=== PATIENT | male | born 1950 | race African-American/Black ===

== ENCOUNTER → 2019-03-09 | Outpatient (CLI) | payer MEDICARE ==
--- NOTE | 2019-03-09 13:25 | RADIOLOGY REPORT (SQ) ---
EXAM DESCRIPTION: LUMBAR SPINE COMPLETE COMPLETED DATE/TIME: 03/09/2019 12:00 pm REASON FOR STUDY: ACUTE MIDLINE LOW BACK PAIN WITHOUT SCIATICA M54.5 LOW BACK PAIN COMPARISON: None. NUMBER OF VIEWS: Five views including obliques. TECHNIQUE: AP, lateral, oblique, and sacral radiographic images acquired of the lumbar spine. LIMITATIONS: None. FINDINGS: MINERALIZATION: Normal. SEGMENTATION: Normal. No transitional anatomy. ALIGNMENT: Normal. VERTEBRAE: Maintained height. No fracture or worrisome bone lesion. DISCS: There is narrowing of the L4-5 disc space. POSTERIOR ELEMENTS: Hypertrophic facet changes are present from L4-S1. HARDWARE: None in the spine. PARASPINAL SOFT TISSUES: Normal. PELVIS: Intact as visualized. No fractures or worrisome bone lesions. SI joints intact. OTHER: No other significant finding. IMPRESSION: Degenerative disc disease, spondylosis, and facet arthropathy. TECHNICAL DOCUMENTATION: JOB ID: [id number] [employer]- All Rights Reserved Reading location - IP/workstation name: [email or web address]
== END ==
LOC: OD 11:38
PROVIDERS: ATTEND Physician Assistant
DX: M51.36 Other intervertebral disc degeneration, lumbar region (principal); M54.5 Low back pain
CPT/HCPCS: 72110

== ENCOUNTER → 2019-03-19 | Outpatient (CLI) | payer MEDICARE ==
--- NOTE | 2019-03-19 11:56 | RADIOLOGY REPORT (SQ) ---
EXAM DESCRIPTION: MRI LUMBAR SPINE WITHOUT COMPLETED DATE/TIME: 03/19/2019 10:07 am REASON FOR STUDY: M54.10 RADICULOPATHY, SITE UNSPECIFIED M54.10 RADICULOPATHY, SITE UNSPECIFIED COMPARISON: Lumbar spine five views 03/09/2019 TECHNIQUE: Sagittal and Axial imaging includes T1, T2, STIR and gradient echo sequences. Coronal T2/ HASTE imaging. LIMITATIONS: None. FINDINGS: VISUALIZED UPPER ABDOMEN: Limited evaluation. No acute or suspicious findings suggested. SEGMENTATION: No transitional anatomy. The lowest well-developed disc space is labeled L5-S1. ALIGNMENT: Grade 1 anterolisthesis of L4 over L5 related to advanced bilateral L4-5 facet arthropathy VERTEBRAE: Intact. BONE MARROW: Normal. No marrow replacement or reactive changes. DISC SIGNAL: Decreased T2 weighted intervertebral disc signal with decreased disc space height at L4- 5 POSTERIOR ELEMENTS: Generally intact. No pars defect evident. HARDWARE: None in the spine. CORD AND CONUS: Normal in size and signal intensity. Conus at the L1-2 level. SOFT TISSUES: No aortic aneurysm seen. No bulky retroperitoneal adenopathy or mass. No paraspinal mas s or fluid. T11-12: At the upper edge of the field of view. Borderline central canal narrowing results from bul ky bilateral facet hypertrophy and prominent epidural fat. No foraminal narrowing. T12-L1: No central or foraminal stenosis. Mild bilateral facet hypertrophy L1-L2: No central or foraminal stenosis. Mild bilateral facet and ligament hypertrophy L2-L3: No central or foraminal stenosis. Moderate bilateral facet hypertrophy. L3-L4: Broad diffuse posterior disc bulging and moderate bilateral facet and ligament hypertrophy is present. No significant central or foraminal stenosis. L4-L5: Grade 1 anterolisthesis of L4 over L5, broad diffuse posterior disc bulge and bony spurring, b ulky bilateral facet and ligament hypertrophy cause moderate central canal narrowing. There is effac ement of the CSF around the lumbar nerve roots best shown on axial image 25. High-grade right forami nal narrowing is present with effacement of fat around the exiting right L4 nerve root. Moderate lef t L4-5 foraminal narrowing. L5-S1: Moderate bilateral facet hypertrophy. No central stenosis. Mild bilateral foraminal narrowin g without exiting L5 nerve root impingement SACRUM: Visualized upper sacrum intact. OTHER: No other significant findings. IMPRESSION: Degenerative changes most pronounced at L4-5 TECHNICAL DOCUMENTATION: JOB ID: [id number] [employer]- All Rights Reserved Reading location - IP/workstation name: [email or web address]
== END ==
LOC: RAD 09:13
PROVIDERS: ATTEND Family Medicine
DX: M54.10 Radiculopathy, site unspecified (principal); M48.061 Spinal stenosis, lumbar region without neurogenic claudication
CPT/HCPCS: 72148

== ENCOUNTER → 2019-12-25 | Outpatient (CLI) | payer MEDICARE ==
--- NOTE | 2019-12-25 12:24 | RADIOLOGY REPORT (SQ) ---
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 TECHNIQUE: Multiplanar imaging includes non-contrasted T1, T2, FLAIR, and diffusion with ADC map seq uences. Images stored on PACS. LIMITATIONS: None. FINDINGS: ANATOMY: No anomalies. Normal vascular flow voids. Pituitary fossa normal. CSF SPACES: Prominent lateral ventricles suggesting some degree of atrophy. CEREBRUM: Sulci and gyri normal in size and contour. Small scattered areas of increased white matter signal on FLAIR imaging. No evidence of hemorrhage, mass, or extraaxial fluid collection. POSTERIOR FOSSA: No signal alteration. No hemorrhage. No edema, masses or mass effect. Internal bonita tory canals, cerebello-pontine angles, mastoids normal. DIFFUSION IMAGING: Negative for acute or sub-acute infarction. ORBITS: No masses. Globes normal. PARANASAL SINUSES: No fluid levels. Mucosa normal. OTHER: No other significant finding. IMPRESSION: Mild involutional changes with mild chronic microvascular ischemia. No acute intracrani al imaging findings. EVIDENCE OF ACUTE STROKE: NO. TECHNICAL DOCUMENTATION: JOB ID: [id number] [employer]- All Rights Reserved Reading location - IP/workstation name: [email or web address]
--- NOTE | 2019-12-25 12:35 | RADIOLOGY REPORT (SQ) ---
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 TECHNIQUE: Sagittal and Axial imaging includes T1, T2, STIR and gradient echo sequences. LIMITATIONS: Slight motion artifact. FINDINGS: ALIGNMENT: Mild anterolisthesis of C7 on T1. VERTEBRAE: Intact. BONE MARROW: Normal. No marrow replacement or reactive changes. DISCS: There is decreased T2 signal in the cervical discs. Disc spaces are narrowed at C3-4 and from C5 to T1. HARDWARE: None in the spine. CORD AND BASE OF BRAIN: Normal in size and signal intensity. SOFT TISSUES: No soft tissue masses. C1-C2: No significant spinal stenosis. C2-C3: No significant spinal stenosis or exit foraminal stenosis. C3-C4: Broad-based disc/osteophyte complex slightly flattens the spinal cord. Mild central canal yara nosis. Mild right foraminal stenosis. C4-C5: Broad-based disc/osteophyte complex contacts the cord on the left. Mild central canal stenosi s. No foraminal stenosis. C5-C6: Right paracentral disc/ osteophyte complex deforms the spinal cord. Moderate central canal st enosis. No foraminal stenosis. C6-C7: No significant spinal stenosis or exit foraminal stenosis. C7-T1: There is slight unroofing of the cord secondary to anterolisthesis of C7. Moderate central ca nal stenosis. No foraminal stenosis. UPPER THORACIC: Incompletely imaged. No significant spinal stenosis or exit foraminal stenosis. OTHER: No other significant finding. IMPRESSION: Multilevel central canal stenosis. Disc/ osteophyte complexes at multiple levels. Most significant findings at C5-6 with a prominent right paracentral disc/ osteophyte complex that deform s the cord on the right with a moderate central canal stenosis. TECHNICAL DOCUMENTATION: JOB ID: [id number] [employer]- All Rights Reserved Reading location - IP/workstation name: [email or web address]
== END ==
LOC: RAD 08:38
PROVIDERS: ATTEND Neurological Surgery
DX: M50.03 Cervical disc disorder with myelopathy, cervicothoracic region (principal); M48.02 Spinal stenosis, cervical region; I63.9 Cerebral infarction, unspecified
CPT/HCPCS: 70551; 72141